=== PATIENT | male | born 1990 | race Caucasian/White ===

== ENCOUNTER 2018-04-07 11:47 | Emergency (ER) | payer MEDICAID, OTHER ==
[~2018-04-07] VITALS: Ht 180.3 cm; Wt 79.4 kg
[2018-04-07 11:55] VITALS: BP 115/69
[2018-04-07] MEDS ORDERED: diphenhdrAMINE HCL 50 MG/1 ML VL IM ONE (13:00)
== END 2018-04-07 13:41 | disposition home or self-care (01) ==
LOC: ER 11:47
DX: F41.9 Anxiety disorder, unspecified (principal); F32.9 Major depressive disorder, single episode, unspecified
CPT/HCPCS: 96372; 99284; J1200